=== PATIENT | female | born 1965 | race Two or more races ===

== ENCOUNTER 2024-12-17 06:52 | Day surgery (SDC) | payer OTHER ==
[2024-12-15 09:29] VITALS: BMI 19.0
[2024-12-17] MEDS: ceFAZolin SODIUM 1 GM VIAL IVPB ONE ×2 (09:50→10:18)
[2024-12-17] MEDS: HEPARIN NA (PORCINE) 5,000 UNITS/ML 1ML VIAL SQ ONE (09:51)
[2024-12-17] MEDS: LIDOCAINE HCL 1%, 10 MG/ML (20ML VIAL) ID ONE ×3 (09:52→10:32)
[2024-12-17] MEDS ORDERED: POVIDONE-IODINE OINTMENT 10% - 28.4 GM TUBE ONE (10:48)
[2024-12-17] MEDS ORDERED: ONDANSETRON 4 MG/2 ML VIAL IVPUSH PRN (11:01)
[2024-12-17] MEDS ORDERED: PROMETHAZINE HCL 25 MG/1 ML VIAL IVPB PRN (11:01)
[2024-12-17] MEDS ORDERED: oxyCODONE HCL 5 MG TABLET PO PRN ×2 (11:01)
[2024-12-17] MEDS: POVIDONE-IODINE OINTMENT 10% - 28.4 GM TUBE TP ONE (11:02)
[2024-12-17] MEDS: hydrALAZINE HCL 20 MG/ML VIAL IVPUSH ONE (11:50)
[2024-12-17] MEDS ORDERED: ACETAMINOPHEN INJECTION 100 ML ONE (12:11)
[2024-12-17] MEDS: LACTATED RINGERS SOLUTION 1,000 ML IV SCH (12:19)
[2024-12-17] MEDS: ACETAMINOPHEN 1000 MG/100 ML BAG IVPB ONE (12:19)
[2024-12-17 13:33] VITALS: BP 130/70; RESP 18; TEMP 98
[2024-12-17 13:57] VITALS: PULSE 56
== END 2024-12-17 13:57 | disposition home or self-care (01) ==
LOC: JASU-SURG 06:52
PROVIDERS: ATTEND Surgery
PROC: 03Q Upper Arteries, Repair (ICD-10-PCS; principal; 2024-12-17 10:00)
DX: T82.868A Thrombosis due to vascular prosthetic devices, implants and grafts, initial encounter (principal); Y83.8 Other surgical procedures as the cause of abnormal reaction of the patient, or of later complication, without mention of misadventure at the time of the procedure; I12.0 Hypertensive chronic kidney disease with stage 5 chronic kidney disease or end stage renal disease; N18.6 End stage renal disease; Z99.2 Dependence on renal dialysis; M32.9 Systemic lupus erythematosus, unspecified
CPT/HCPCS: 88304-TC; 94760; J0131; J1644